=== PATIENT | female | born 1995 | race African-American/Black ===

== ENCOUNTER 2019-05-26 18:23 | Emergency (ER) | payer OTHER ==
[2019-05-26 18:45] VITALS: BP 105/75
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
[2019-05-26] MEDS ORDERED: IBUPROFEN 600 MG TABLET PO ONE (19:21)
[2019-05-26] MEDS ORDERED: ACETAMINOPHEN 325 MG TABLET PO ONE (19:21)
== END 2019-05-26 19:41 | disposition home or self-care (01) ==
LOC: ER 18:23
DX: M54.5 Low back pain (principal); V87.7XXA Person injured in collision between other specified motor vehicles (traffic), initial encounter
CPT/HCPCS: 99283